=== PATIENT | male | born 1945 | race Caucasian/White ===

== ENCOUNTER 2017-01-13 11:43 | Emergency (ER) | payer OTHER ==
[~2017-01-13] VITALS: Ht 172.7 cm; Wt 72.0 kg
[2017-01-13 11:46] VITALS: BP 167/73; PULSE 56; RESP 20; TEMP 97.3; O2SAT 97
--- NOTE | 2017-01-13 12:18 | PD ---
HPI Chief Complaint: Hypertension Time Seen by Provider: 12:16 Travel History International Travel<30 days: No Contact w/Intl Traveler<30days: No Traveled to known affect area: No History of Present Illness HPI 71-year-old male presents to the emergency department because he was sent here by the [facility] for elevated blood pressure. He has history of hypertension and takes his medications as prescribed. He did take his medications this morning. Does not recall the name of the pressure medication. [facility] When he arrived here he said it was 167 over something. [facility] he had just [facility] prior to being seen by them and his blood pressure would most likely go down. He denies symptoms of high blood pressure. Denies chest pain, shortness of breath , headache, confusion, blurred vision, nausea, vomiting, shortness of breath, flushing, diaphoresis. Has no other medical complaints. No other modifying factors or associated signs and symptoms. PFSH Past Medical History Cardiovascular Problems: Yes (HX OF [place] ) Social History Tobacco Use: No Allergies-Medications (Allergen,Severity, Reaction): Coded Allergies: No Known Allergies (Unverified , 01/13/17) Review of Systems Except as stated in HPI: all other systems reviewed are Neg Physical Exam Narrative GENERAL: Well-nourished, well-developed male patient, in no acute distress SKIN: Warm and dry. HEAD: Atraumatic. Normocephalic. EYES: Pupils equal and round. No scleral icterus. No injection or drainage. ENT: Mucosa pink and moist. Airway patent. NECK: Trachea midline. CARDIOVASCULAR: Regular rate and rhythm. No murmur appreciated. RESPIRATORY: No accessory muscle use. Clear to auscultation. Breath sounds equal bilaterally. GASTROINTESTINAL: Abdomen soft, non-tender, nondistended. Hepatic and splenic margins not palpable. Bowel sounds are active 4 quadrants. MUSCULOSKELETAL: No obvious deformities. No clubbing. No cyanosis. No edema. NEUROLOGICAL: Awake and alert. Oriented 3. No obvious cranial nerve deficits. Motor grossly within normal limits. Normal speech. PSYCHIATRIC: Appropriate mood and affect; insight and judgment normal. Data Data Last Documented VS Vital Signs Date Time Temp Pulse Resp B/P Pulse Ox O2 Delivery O2 Flow Rate FiO2 01/13/17 11:46 97.3 56 20 167/73 97 Room Air MDM Medical Decision Making Medical Screen Exam Complete: Yes Emergency Medical Condition: Yes Medical Record Reviewed: Yes Differential Diagnosis Medical clearance, high blood pressure, chronic hypertension Narrative Course 71-year-old male with history of hypertension and took his blood pressure medications was sent by the [facility] to be evaluated for elevated blood pressure reading [facility]. He does not recall the name of the blood pressure medication he is on. His blood pressure in the ER is 167/73. He is asymptomatic. Instructed patient to continue to take medications as prescribed. Discussed signs and symptoms of high blood pressure and reasons to return to the emergency department. Patient verbalizes understanding and agreement with treatment plan. Patient is medically cleared and stable for discharge. Discussed reasons to return to the emergency department. Instructed patient to follow up with primary care provider. Patient agrees with treatment plan. The patients vital signs are stable and the patient is stable for outpatient follow-up and treatment. Patient discharged home, stable and in no acute distress. Diagnosis Primary Impression: High blood pressure Qualified Code: I10 - Essential hypertension Referrals: Primary Care Physician Patient Instructions: Chronic Hypertension (ED), General Instructions, Hypertension (ED) Departure Forms: Tests/Procedures Additional Instructions: Continue to take medications as prescribed Follow-up with primary care provider Return to the emergency department immediately with worsening of symptoms, particularly as discussed Med/Other Pt SpecificInfo: No Change to Meds, No Meds Exist/No RX given Disposition: 01 DISCHARGE HOME Condition: Stable Joycelyn Sweeney Jan 13, 2017 12:18
[2017-01-13 12:31] VITALS: BP 155/70; PULSE 46; RESP 18; O2SAT 97
[2017-01-13 12:34] VITALS: BP 155/70
== END 2017-01-13 12:35 | disposition home or self-care (01) ==
LOC: NEPB 11:43
DX: I10 Essential (primary) hypertension (principal); I25.2 Old myocardial infarction
CPT/HCPCS: 99283